=== PATIENT | female | born 1970 | race African-American/Black ===

== ENCOUNTER 2024-03-20 13:32 | Outpatient (CLI) | payer OTHER, SELFPAY ==
--- NOTE | 2024-03-20 14:20 | NEURO_ITS ---
Impression: # Non-diabetic, complains of numbness of hands. # Bilateral moderate Carpal Tunnel Syndrome, right more than left. # Normal needle/EMG exam. Nerve Conduction Studies Anti Sensory Summary Table Stim Site NR Peak (ms) P-T Amp (?V) Site1 Site2 Delta-P (ms) Dist (cm) Yang (m/s) Left Median Anti Sensory (2-3nd Digit) Wrist 4.3 9.0 Wrist 2-3nd Digit 4.3 14.0 33 Wrist 5.7 18.1 Wrist 2-3nd Digit 4.3 14.0 33 Right Median Anti Sensory Run #2 (2-3nd Digit) Wrist 5.0 3.6 Wrist 2-3nd Digit 5.0 14.0 28 Wrist 5.8 8.2 Wrist 2-3nd Digit 5.0 14.0 28 Left Radial Anti Sensory (Base 1st Digit) Wrist 1.6 23.8 Wrist Base 1st Digit 1.6 0.0 Right Radial Anti Sensory (Base 1st Digit) Wrist 1.9 38.1 Wrist Base 1st Digit 1.9 0.0 Left Ulnar Anti Sensory (5th Digit) Wrist 2.3 51.0 Wrist 5th Digit 2.3 14.0 61 Right Ulnar Anti Sensory (5th Digit) Wrist 2.3 51.7 Wrist 5th Digit 2.3 14.0 61 Motor Summary Table Stim Site NR Onset (ms) O-P Amp (mV) Site1 Site2 Delta-0 (ms) Dist (cm) Yang (m/s) Left Median Motor (Abd Poll Brev) Wrist 5.0 0.4 Elbow Wrist 5.4 29.0 54 Elbow 10.4 0.7 Right Median Motor (Abd Poll Brev) Wrist 6.7 4.2 Elbow Wrist 7.4 27.0 36 Elbow 14.1 3.6 ELB/ADM Wrist 3.8 0.0 ELB/ADM 2.9 2.4 Left Ulnar Motor (Abd Dig Minimi) Wrist 2.5 6.0 A Elbow Wrist 4.4 28.0 64 A Elbow 6.9 5.9 Right Ulnar Motor (Abd Dig Minimi) Wrist 2.0 8.3 A Elbow Wrist 4.6 28.0 61 A Elbow 6.6 7.7 F Wave Studies NR F-Lat (ms) L-R F-Lat (ms) Left Median (Mrkrs) (Abd Poll Brev) 29.40 0.64 Right Median (Mrkrs) (Abd Poll Brev) 30.04 0.64 Left Ulnar (Mrkrs) (Abd Dig Min) 25.08 1.62 Right Ulnar (Mrkrs) (Abd Dig Min) 23.46 1.62 EMG Side Muscle Nerve Root Ins Act Fibs Amp Dur Recrt Comment Right 1stDorInt Ulnar C8-T1 Nml Nml Nml Nml Nml Right Ext Indicis Radial (Post Int) C7-8 Nml Nml Nml Nml Nml Right Ext Digitorum Radial (Post Int) C7-8 Nml Nml Nml Nml Nml Right BrachioRad Radial C5-6 Nml Nml Nml Nml Nml Right PronatorTeres Median C6-7 Nml Nml Nml Nml Nml Right Abd Poll Brev Median C8-T1 Nml Nml Nml Nml Nml Right ABD Dig Min Ulnar C8-T1 Nml Nml Nml Nml Nml Left 1stDorInt Ulnar C8-T1 Nml Nml Nml Nml Nml Left Ext Indicis Radial (Post Int) C7-8 Nml Nml Nml Nml Nml Left Ext Digitorum Radial (Post Int) C7-8 Nml Nml Nml Nml Nml Left BrachioRad Radial C5-6 Nml Nml Nml Nml Nml Left PronatorTeres Median C6-7 Nml Nml Nml Nml Nml Left Abd Poll Brev Median C8-T1 Nml Nml Nml Nml Nml Left ABD Dig Min Ulnar C8-T1 Nml Nml Nml Nml Nml MTDD
== END 2024-03-20 13:33 | disposition home or self-care (01) ==
PROVIDERS: PCP Physician Assistant; Visit Provider Physician Assistant
DX: G56.03 Carpal tunnel syndrome, bilateral upper limbs (principal)
CPT/HCPCS: 95886; 95911

== ENCOUNTER 2024-03-27 00:06 | Day surgery (SDC) | payer OTHER, SELFPAY ==
[2024-03-08 15:55] VITALS: BMI 43.6
--- NOTE | 2024-03-27 06:40 | SUR.PREOP ---
Patient called at 0640 this morning to cancel- states she threw up her prep and she is not cleaned out.
[2024-03-27 11:13] VITALS: BP 127/71; PULSE 76; RESP 18; TEMP 36.4; O2SAT 99; BMI 41.1
[2024-03-27] MEDS: LACTATED RINGERS 1,000 ML 150 ML IV CONT (11:18)
--- NOTE | 2024-03-27 11:22 | WPDANESEPPF ---
Anes - Initial Pre Proc Eval Procedure: Operation Date: 03/27/24 11:30 Proposed Procedures p Screening Colonoscopy - Don Sher MD Date/Time: 03/27/24 11:22 Surgeon: Don Sher MD Pre Op Diagnosis: Neoplasm screening Patient Data Age: 53 Gender: F Height: 1.5 m Weight: 92.5 kg Last Vital Signs Temp 97.5 F L 03/27/24 11:13 Pulse 76 03/27/24 11:13 Resp 18 03/27/24 11:13 BP 127/71 03/27/24 11:13 Pulse Ox 99 03/27/24 11:13 O2 Del Method Room Air 03/27/24 11:13 Allergies Allergy/AdvReac Type Severity Reaction Status Date / Time No Known Allergies Allergy Verified 03/27/24 11:12 Home Medications Medication Instructions Recorded Confirmed Type gabapentin 100 mg capsule 100 mg PO DAILY PRN Pain 03/08/24 03/27/24 History Patient hx anesthesia problems: none Family hx anesthesia problems: none Results Review: All pre-operative results and documents have been reviewed as part of the pre-operative evaluation. [facility] Past Medical History Medical History (Updated 03/27/24 @ 12:02 by Don Sher MD) Colon cancer screening Social History Social History Living arrangements: with family Spiritual care concerns: No Anes - Eval Final PreProcedure Day of Procedure 03/27/24 11:22 Patient weight: morbidly obese Heart: regular rate and rhythm Lungs: clear to auscultation Airway: Mallampati scale Neurological: alert and oriented Last oral intake: >/= 8 hours ASA classification: III Emergent: no Anesthetic plan: proceed Anesthesia type and monitoring: general GIVS and standard monitoring Results Review: All pre-operative results and documents have been reviewed as part of the pre-operative evaluation. Informed Consent: The patient's anesthetic plan and its attendant risks and benefits were discussed with the patient/family/POA. Questions were solicited and answers provided to the satisfaction of the patient/family/POA.
--- NOTE | 2024-03-27 12:01 | PM.HPGS ---
History of Present Illness History of Present Illness Consent: Risks, benefits, and alternatives have been discussed and questions answered. Patient agrees to proceed with procedure. Chief complaint: Neoplasm screening Narrative: Anna Rios is a 53 year old female here for first screening colonoscopy Review of Systems Review of Systems: All systems reviewed & are unremarkable except as noted in HPI and below PMFSH Past Medical History Medical History (Updated 03/27/24 @ 12:02 by Don Sher MD) Colon cancer screening Social History Social History Living arrangements: with family Spiritual care concerns: No Meds Home Medications and Allergies Home Medications Medication Instructions Recorded Confirmed Type gabapentin 100 mg capsule 100 mg PO DAILY PRN Pain 03/08/24 03/27/24 History Allergies Allergy/AdvReac Type Severity Reaction Status Date / Time No Known Allergies Allergy Verified 03/27/24 11:12 Vital Signs Vital Signs - 24 hr 03/27/24 11:13 Temperature 97.5 F L Pulse Rate 76 Respiratory Rate 18 Blood Pressure 127/71 Pulse Oximetry 99 Oxygen Delivery Room Air Exam Const: General: comfortable and no acute distress HENMT: Face/Nose/Sinus: Normal nares present Eyes: General: appearance normal, both eyes and all related structures Neck: Neck: no JVD Resp: Auscultation: clear to auscultation bilaterally Cardio: Rate: regular rate Rhythm: regular rhythm GI: Inspection: non-distended GI Palp: Yes Soft to palpation Skin: General skin exam: normal color Neuro: General: gait normal Speech: normal speech Extrem: General: normal to inspection Psych: Mental Status: mental status grossly normal Assessment and Plan Assessment and plan (1) Colon cancer screening: Code(s): Z12.11 - Encounter for screening for malignant neoplasm of colon Status: Acute Assessment and Plan: colonoscopy
[2024-03-27 12:17] VITALS: BP 101/65; PULSE 80; RESP 20; O2SAT 98
[2024-03-27 12:27] VITALS: BP 107/76; PULSE 75; RESP 18; O2SAT 98
[2024-03-27 12:37] VITALS: BP 122/80; PULSE 67; RESP 18; O2SAT 98
== END 2024-03-27 12:49 | disposition home or self-care (01) ==
PROVIDERS: PCP Physician Assistant; Visit Provider Internal Medicine Gastroenterology
PROC: 0DJD8ZZ Inspection of Lower Intestinal Tract, Via Natural or Artificial Opening Endoscopic (ICD-10-PCS; CPT 45378; principal; 2024-03-27 11:30)
DX: Z12.11 Encounter for screening for malignant neoplasm of colon (principal); E66.01 Morbid (severe) obesity due to excess calories; Z68.41 Body mass index [BMI] 40.0-44.9, adult
CPT/HCPCS: 45378; J2001; J2704; J7120

== ENCOUNTER 2024-05-12 11:08 | Outpatient (CLI) | payer OTHER, SELFPAY ==
--- NOTE | ~2024-05-12 | MM_ITS ---
EXAMINATION: MM screening malika BI w yao HISTORY: Screening TECHNIQUE: Craniocaudal and mediolateral oblique 3-D tomosynthesis images were obtained and synthetic 2-D images were generated. CAD analysis was submitted and interpreted. COMPARISON: No prior mammogram is available for comparison at this institution. BREAST PARENCHYMAL COMPOSITION: Not dense: There are scattered areas of fibroglandular density. FINDINGS: There are scattered bilateral nodular asymmetries. There are no suspicious calcifications o r architectural distortion. IMPRESSION: 1. Bilateral nodular asymmetries. 2. Additional mammographic views and possible breast ultrasound are recommended. BI-RADS Category 0: Incomplete: Needs additional imaging evaluation. Reviewed, dictated and finalized at location B. IMPRESSION: 1. Bilateral nodular asymmetries. 2. Additional mammographic views and possible breast ultrasound are recommended . BI-RADS Category 0: Incomplete: Needs additional imaging evaluation.
== END 2024-05-12 11:09 ==
PROVIDERS: PCP Physician Assistant; Visit Provider Physician Assistant
DX: Z12.31 Encounter for screening mammogram for malignant neoplasm of breast (principal); N64.89 Other specified disorders of breast
CPT/HCPCS: 77063; 77067

== ENCOUNTER 2024-05-28 09:17 | Outpatient (CLI) | payer OTHER, SELFPAY ==
--- NOTE | ~2024-05-28 | MMUS_ITS ---
EXAMINATION: MM diagnostic malika BI w yao, US breast BI complete HISTORY: Follow-up bilateral breast asymmetries TECHNIQUE: Additional 3-D tomosynthesis images of the breasts were performed and synthetic 2-D images were generated. CAD analysis was submitted and interpreted. High resolution bilateral complete breas t ultrasound was performed. COMPARISON: 05/12/2024 BREAST PARENCHYMAL COMPOSITION: Not dense: There are scattered areas of fibroglandular density. FINDINGS: MAMMOGRAPHIC FINDINGS: There are scattered small bilateral breast masses which are obscured by fibroglandular tissue. ULTRASOUND: Complete bilateral US of all 4 quadrants of the breasts and retroareolar region was reviewed. Right breast: At 2:00, 4 cm from the nipple there is a tubular 5 mm structure with low-level internal echoes. There are multiple small cysts in both breasts. No other suspicious masses are identified. IMPRESSION: 1. Small 5 mm tubular structure in the right breast at 2:00, 4 cm from the nipple, likely benign and probably prominent duct or complicated cyst. 2. Recommend 6 month follow-up Limited right breast ultrasound BI-RADS category 3, probably benign findings. Reviewed, dictated and finalized at location B. IMPRESSION: 1. Small 5 mm tubular structure in the right breast at 2:00, 4 cm from the nipp le, likely benign and probably prominent duct or complicated cyst. 2. Recommend 6 month follow-up Limited right breast ultrasound BI-RADS category 3, probably benign findings.
== END 2024-05-28 09:18 ==
LOC: MICIMG 09:18
PROVIDERS: PCP Physician Assistant; Visit Provider Physician Assistant
DX: R92.8 Other abnormal and inconclusive findings on diagnostic imaging of breast (principal)
CPT/HCPCS: 76641; 77062; 77066; G0279